=== PATIENT | female | born 1990 | race Caucasian/White ===

== ENCOUNTER → 2017-08-06 07:52 | Outpatient (CLI) | payer BC, SELFPAY ==
--- NOTE | 2017-08-06 08:00 | RAD_ITS ---
STUDY: HYSTEROSALPINGOGRAM. REASON FOR EXAM: Female, 27 years old. Infertility. FLUOROSCOPY TIME (if supplied): (0:13) minutes/seconds TECHNIQUE: The electrician marine perform the hysterosalpingogram. Contrast was injected. Imaging was provided. COMPARISON: None. FINDINGS: The uterus is unremarkable. Both fallopian tubes were opacified and are patent. RAD/Salpingogram IMPRESSION: Patency of both fallopian tubes. Electronically Signed: Zachariah Carlos MD at 10:58 EDT Tel [phone], Service support ,
== END ==
PROVIDERS: Family Provider Family Medicine; PCP Family Medicine; Visit Provider Obstetrics & Gynecology
DX: N97.9 Female infertility, unspecified (principal)
CPT/HCPCS: 58340; 74740; Q9967